=== PATIENT | male | born 1985 | race Caucasian/White ===

== ENCOUNTER 2017-01-09 14:42 | Emergency (ER) | payer OTHER ==
[~2017-01-09] VITALS: Ht 177.8 cm; Wt 81.8 kg
[2017-01-09 14:58] VITALS: BP 140/98; PULSE 74; RESP 14; O2SAT 96
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
== END 2017-01-09 15:40 | disposition home or self-care (01) ==
LOC: SED 14:42
DX: S69.91XA Unspecified injury of right wrist, hand and finger(s), initial encounter (principal); W25.XXXA Contact with sharp glass, initial encounter; Y93.89 Activity, other specified; Y92.69 Other specified industrial and construction area as the place of occurrence of the external cause; Y99.0 Civilian activity done for income or pay